=== PATIENT | female | born 1995 | race Caucasian/White ===

== ENCOUNTER → 2021-03-02 | Outpatient (CLI) | payer OTHER ==
--- NOTE | 2021-03-02 14:32 | USB ---
Reason for exam: additional evaluation requested from abnormal screening. History: Family history of breast cancer in paternal grandmother at age 20 and breast cancer in mother at age 50. Physical Findings: Nurse Summary: Patient complains of bilateral breast sensitivity x 1.5 years, bilateral upper outer quadrant itchy skin irritation (nurse mj). US Breast BILAT Right complete breast ultrasound includes all four quadrants, the retroareolar region and axilla. Finding demonstrates no cystic or solid lesion seen. Left complete breast ultrasound includes all four quadrants, the retroareolar region and axilla. Finding demonstrates no cystic or solid lesion seen. These results were verbally communicated with the patient and result sheet given to the patient on 03/02/21. ASSESSMENT: Negative, BI-RAD 1 RECOMMENDATION: Routine screening mammogram of both breasts at age 38. (unless clinical indication to start sooner) Manage patient on a clinical basis. Genetic testing as indicated.
== END | disposition home or self-care (01) ==
LOC: RADUSWWP 13:38
PROVIDERS: ATTEND Family Medicine
DX: Z80.3 Family history of malignant neoplasm of breast (principal)

== ENCOUNTER 2021-04-11 15:42 | Emergency (ER) | payer OTHER ==
[2021-04-11 15:46] VITALS: RESP 18
[2021-04-11] MEDS ORDERED: IBUPROFEN 600 MG TAB PO STA (16:06)
--- NOTE | 2021-04-11 16:34 | ED ---
General Adult HPI - General Chief complaint: Extremity Injury, Lower Stated complaint: foot injury Time Seen by Provider: 04/11/21 15:48 Source: patient Mode of arrival: wheelchair Limitations: no limitations - History of Present Illness Initial comments: 25-year-old female presents to the emergency department the chief complaint of pain on her left foot. States about one hour ago she dropped a piece of wood on the dorsal aspect of the foot and now has developed erythema with swelling to the region. States it is tender to the touch and she cannot apply any pressure on it. She denies taking medication to relieve the symptoms. This occurred while she was outside. Pain better with rest. - Related Data Allergies Allergy/AdvReac Type Severity Reaction Status Date / Time No Known Allergies Allergy Verified 04/11/21 15:45 Review of Systems ROS Statement: Those systems with pertinent positive or pertinent negative responses have been documented in the HPI. ROS Other: All systems not noted in ROS Statement are negative. Past Medical History Past Medical History: No Reported History History of Any Multi-Drug Resistant Organisms: None Reported Past Surgical History: Section, Cholecystectomy Smoking Status: Never smoker Past Alcohol Use History: None Reported Past Drug Use History: Marijuana General Exam Limitations: no limitations General appearance: alert, in no apparent distress Head exam: Present: atraumatic, normocephalic, normal inspection Eye exam: Present: normal appearance, PERRL, EOMI Pupils: Present: normal accommodation ENT exam: Present: normal exam, normal oropharynx, mucous membranes moist Neck exam: Present: normal inspection, full ROM. Absent: tenderness Respiratory exam: Present: normal lung sounds bilaterally. Absent: respiratory distress, wheezes, rales, rhonchi, stridor, chest wall tenderness, accessory muscle use Cardiovascular Exam: Present: regular rate, normal rhythm, normal heart sounds. Absent: systolic murmur Extremities exam: Present: full ROM, tenderness (Tenderness at the injured site), normal capillary refill, other (Palpable DP and PT bilaterally). Absent: normal inspection (Erythema swelling on the dorsal aspect of the left midfoot.), pedal edema, joint swelling, calf tenderness Back exam: Present: normal inspection, full ROM. Absent: tenderness, CVA tenderness (R), CVA tenderness (L) Neurological exam: Present: alert, oriented X3 Psychiatric exam: Present: normal affect, normal mood Skin exam: Present: warm, dry, intact, normal color Course Vital Signs 04/11/21 15:43 Temperature 98.8 F Pulse Rate 91 Respiratory 18 Rate Blood Pressure 114/75 O2 Sat by Pulse 98 Oximetry Medical Decision Making - Medical Decision Making 25-year-old female presents to the emergency department with a chief complaint of foot pain. on Physical examination, she is neurovascularly intact but she has moderate amount of swelling on the dorsal aspect of the left foot. X-rays unremarkable. Patient was given ibuprofen for pain. She was advised to rest, ice, compress and elevate. Return parameters were discussed patient is an attending agreeable. Case discussed with Dr. Aviles. Disposition Clinical Impression: Injury of left foot, Foot swelling Disposition: HOME SELF-CARE Condition: Stable Instructions (If sedation given, give patient instructions): Foot Sprain (ED) Additional Instructions: Please return to the Emergency Department if symptoms worsen or any other con cerns. Is patient prescribed a controlled substance at d/c from ED?: No Referrals: Ana Billy MD [Primary Care Provider] - 1-2 days Time of Disposition: 16:53
--- NOTE | 2021-04-11 16:47 | XR ---
EXAMINATION TYPE: XR foot complete LT DATE OF EXAM: 04/11/2021 COMPARISON: NONE HISTORY: Foot pain TECHNIQUE: 3 views FINDINGS: There is soft tissue swelling of the forefoot. Metatarsals are intact. I see no fracture no r dislocation. IMPRESSION: Soft tissue swelling. No fracture seen.
[2021-04-11 17:11] VITALS: BP 121/71; PULSE 96; TEMP 98.2
== END 2021-04-11 17:11 | disposition home or self-care (01) ==
LOC: EC 15:42
DX: S99.922A Unspecified injury of left foot, initial encounter (principal); W20.8XXA Other cause of strike by thrown, projected or falling object, initial encounter; Y92.89 Other specified places as the place of occurrence of the external cause
CPT/HCPCS: 99283